=== PATIENT | female | born 1945 | race Caucasian/White ===

== ENCOUNTER 2019-09-06 13:22 | Outpatient (CLI) | payer MEDICARE, OTHER ==
--- NOTE | 2019-09-15 11:11 | Mammography Report ---
BILATERAL DIGITAL SCREENING MAMMOGRAM 3D/2D: 09/06/2019 CLINICAL: Routine screening. Comparison: 02/12/2014. The tissue of both breasts is predominantly fatty. There is a biopsy clip in the left breast. No significant masses, calcifications, or other findings are seen in either breast. IMPRESSION: NEGATIVE There is no mammographic evidence of malignancy. A 1 year screening mammogram is recommended. This exam was interpreted at Station ID: [id number]. NOTE: For mammograms, a report in lay terms will be sent to the patient. Approximately 15% of breast malignancies will not be visualized mammographically. In the management of a palpable breast mass, a negative mammogram must not discourage biopsy of a clinically suspicious lesion. Electronically Signed By: Bal Aguirre M.D. aty/:09/14/2019 17:49:51 ACR BI-RADS Category 1: Negative 3341F PARENCHYMAL PATTERN: (F) - The breast(s) demonstrate(s) diffuse fatty replacement. BI-RADS CATEGORY: (1) - 1 RECOMMENDATION: (ANNUAL) - Recommend routine annual screening mammography. [id number] 1 year screening LATERALITY: (B)
== END 2019-09-06 13:23 | disposition home or self-care (01) ==
LOC: EDBD 13:22 → DI 13:22
DX: Z12.31 Encounter for screening mammogram for malignant neoplasm of breast (principal)
CPT/HCPCS: 77063; 77067

== ENCOUNTER 2020-12-24 13:59 | Outpatient (CLI) | payer MEDICARE, OTHER ==
--- NOTE | 2020-12-25 08:45 | Mammography Report ---
BILATERAL DIGITAL SCREENING MAMMOGRAM 3D/2D: 12/24/2020 CLINICAL: Routine screening. Comparison is made to exams dated: 09/06/2019 mammogram - [facility], 06/08/2018 [facility], 05/20/2016 mammogram, and 04/26/2015 mammogram - [facility]. The tissue of both br easts is predominantly fatty. There is a biopsy clip in the left breast. No significant masses, calcifications, or other findings are seen in either breast. There has been no significant interval change. IMPRESSION: NEGATIVE There is no mammographic evidence of malignancy. A 1 year screening mammogram is recommended. This exam was interpreted at Station ID: [id number]. NOTE: For mammograms, a report in lay terms will be sent to the patient. Approximately 15% of breast malignancies will not be visualized mammographically. In the management of a palpable breast mass, a negative mammogram must not discourage biopsy of a clinically suspicious lesion. Electronically Signed By: Evans Molina M.D. [facility] [place]:12/24/2020 15:51:51 ACR BI-RADS Category 1: Negative 3341F PARENCHYMAL PATTERN: (F) - The breast(s) demonstrate(s) diffuse fatty replacement. BI-RADS CATEGORY: (1) - 1 RECOMMENDATION: (ANNUAL) - Recommend routine annual screening mammography. [id number] 1 year screening LATERALITY: (B)
== END 2020-12-24 14:00 | disposition home or self-care (01) ==
LOC: DI.S 13:59
DX: Z12.31 Encounter for screening mammogram for malignant neoplasm of breast (principal)

== ENCOUNTER 2021-11-21 15:08 | Outpatient (CLI) | payer MEDICARE, OTHER | END 2021-11-21 15:09 | disposition short-term general hospital (02) | LOC: EMS 15:08 | DX: M25.551 Pain in right hip (principal); S51.011A Laceration without foreign body of right elbow, initial encounter; W10.9XXA Fall (on) (from) unspecified stairs and steps, initial encounter; Y92.008 Other place in unspecified non-institutional (private) residence as the place of occurrence of the external cause | CPT/HCPCS: A0425; A0429 ==

== ENCOUNTER 2022-02-25 15:06 | Outpatient (CLI) | payer MEDICARE, OTHER ==
--- NOTE | 2022-02-27 10:59 | Mammography Report ---
BILATERAL DIGITAL SCREENING MAMMOGRAM 3D/2D: 02/25/2022 CLINICAL: Routine screening. Comparison is made to exams dated: 12/24/2020 mammogram and 09/06/2019 mammogram - [facility]. Both breasts are almost entirely fatty (category a/<25% glandular tissue). There is a biopsy clip in the left breast. No significant masses, calcifications, or other findings are seen in either breast. There has been no significant interval change. IMPRESSION: BENIGN There is no mammographic evidence of malignancy. A 1 year screening mammogram is recommended. Based on the Tyrer Cuzick model (a risk assessment model) the patients lifetime risk is 2.2% and her 10 year risk is 0.0%. According to the ACR, ACS, and NCCN guidelines, an annual breast MRI exam kena g with mammogram is recommended if the patients lifetime risk is 20% or greater. This exam was interpreted at Station ID: [id number]. NOTE: For mammograms, a report in lay terms will be sent to the patient. Approximately 15% of breast malignancies will not be visualized mammographically. In the management of a palpable breast mass, a negative mammogram must not discourage biopsy of a clinically suspicious lesion. Electronically Signed By: Chalino schwarz/penrad:02/26/2022 10:50:26 ACR BI-RADS Category 2: Benign Finding(s) 3342F PARENCHYMAL PATTERN: (F) - The breast(s) demonstrate(s) diffuse fatty replacement. BI-RADS CATEGORY: (2) - 2 RECOMMENDATION: (ANNUAL) - Recommend routine annual screening mammography. [id number] 1 year screening LATERALITY: (B)
== END 2022-02-25 15:07 | disposition home or self-care (01) ==
LOC: DI.S 15:06
DX: Z12.31 Encounter for screening mammogram for malignant neoplasm of breast (principal)

== ENCOUNTER 2023-08-18 08:00 | Outpatient (CLI) | payer MEDICARE, OTHER ==
--- NOTE | 2023-08-18 11:06 | XRAY Report ---
PROCEDURE: Hip w/Pelvis 2-3V LT INDICATIONS: SCIATICA, LEFT TECHNIQUE: 2 views of the hip were acquired. COMPARISON: None. FINDINGS: Bones: No fractures or dislocations. No suspicious bony lesions. Right hip arthroplasty. Hardware is intact without evidence of hardware fracture or periprosthetic lucency to suggest loosening. Mode rate to severe narrowing is present within the left hip as well as lumbar spine. Mild narrowing of th e SI joints are present bilaterally. Soft tissues: No suspicious soft tissue calcifications or masses. 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 Reviewed by: Sylvia Cordon MD on 08/18/2023 11:05 AM PDT Approved by: Sylvia Cordon MD on 08/18/2023 11:05 AM PDT Station ID: [id number]
== END 2023-08-18 23:59 | disposition home or self-care (01) ==
LOC: DI.S 08:00
PROVIDERS: ATTEND Emergency Medicine
DX: M16.12 Unilateral primary osteoarthritis, left hip (principal); M47.816 Spondylosis without myelopathy or radiculopathy, lumbar region

== ENCOUNTER 2023-08-25 10:49 | Outpatient (CLI) | payer MEDICARE, OTHER ==
--- NOTE | 2023-08-26 09:25 | Mammography Report ---
BILATERAL DIGITAL SCREENING MAMMOGRAM 3D/2D: 08/25/2023 CLINICAL: Routine screening. Comparison is made to exams dated: 02/25/2022 mammogram, 12/24/2020 mammogram, and 09/06/2019 mammogr am - [facility]. Both breasts are almost entirely fatty (category a/<25% glandular tissue). There is a biopsy clip in the left breast. No significant masses, calcifications, or other findings are seen in either breast. There has been no significant interval change. IMPRESSION: NEGATIVE There is no mammographic evidence of malignancy. A 1 year screening mammogram is recommended. Based on the Tyrer Cuzick model (a risk assessment model) the patient's lifetime risk is 1.2% and her 10 year risk is 0.0%. According to the ACR, ACS, and NCCN guidelines, an annual breast MRI exam kena g with mammogram is recommended if the patient's lifetime risk is 20% or greater. This exam was interpreted at Station ID: [id number]. NOTE: For mammograms, a report in lay terms will be sent to the patient. Approximately 15% of breast malignancies will not be visualized mammographically. In the management of a palpable breast mass, a negative mammogram must not discourage biopsy of a clinically suspicious lesion. Electronically Signed By: Bal boykin/abe:08/26/2023 07:19:56 letter sent: No_Letter ACR BI-RADS Category 1: Negative 3341F PARENCHYMAL PATTERN: (F) - The breast(s) demonstrate(s) diffuse fatty replacement. BI-RADS CATEGORY: (1) - 1 RECOMMENDATION: (ANNUAL) - Recommend routine annual screening mammography. [id number] 1 year screening LATERALITY: (B)
== END 2023-08-25 10:50 | disposition home or self-care (01) ==
LOC: DI.S 10:49
DX: Z12.31 Encounter for screening mammogram for malignant neoplasm of breast (principal)